=== PATIENT | female | born 1955 | race Caucasian/White ===

== ENCOUNTER → 2017-09-11 | Outpatient (CLI) | payer BC ==
[~2017-09-11] MED LIST: B COTAB3 PO; CALTTAB2 PO; CENTTAB9 PO; COMMODE 3-IN-11 MIS; COUM3TAB PO; ECASA81 PO; ENAL10TA PO; ENOX40IN SQ; FERR324T PO; LEVO.05 PO; LEVO25TA4 PO; LIPI20TA PO; METO25TA3 PO; MULT1TAB PO; NORC5TAB PO; OXYC-360 PO; PANT40TA3 PO; PLAV75TA29 PO; VASO10TA8 PO; VITA100021 SL; VITATAB11 PO; WALKER WHEELS/F1 MIS; ZOFR4TAB PO
== END ==
LOC: CPRE 08:26
PROVIDERS: ATTEND Orthopaedic Surgery
DX: M16.12 Unilateral primary osteoarthritis, left hip (principal)

== ENCOUNTER 2017-09-27 06:52 | Inpatient (IN) | payer BC ==
[~2017-09-27] VITALS: Ht 175.3 cm; Wt 62.4 kg
[~2017-09-27 06:52] MED LIST changes: -B COTAB3 PO; -CALTTAB2 PO; -CENTTAB9 PO; -COMMODE 3-IN-11 MIS; -COUM3TAB PO; -ENOX40IN SQ; -FERR324T PO; -LEVO.05 PO; -NORC5TAB PO; -OXYC-360 PO; -VASO10TA8 PO; -WALKER WHEELS/F1 MIS; -ZOFR4TAB PO
[2017-09-27] MEDS ORDERED: CHLORHEXIDINE GLUCONATE 2 % 1 PACK (2 CLOTHS) TOPICAL PRN (08:00)
[2017-09-27] MEDS ORDERED: POVIDONE IODINE 5% (ANTISEPSIS KIT) 4 APPLICATIONS EACH NARE PRN (08:00)
[2017-09-27] MEDS ORDERED: POVIDONE IODINE 7.5% SCRUB 118 ML BOTTLE TOPICAL SCH (08:00)
[2017-09-27] MEDS ORDERED: VANCOMYCIN 1000 MG/NS 250 ML (for <70 kg) IV SCH ×2 (08:00)
[2017-09-27] MEDS ORDERED: METOPROLOL TARTRATE 25 MG TAB PO PRN (08:00)
[2017-09-27] MEDS ORDERED: SODIUM CHLORID 0.9% 500 ML IV PRN (08:00)
[2017-09-27] MEDS ORDERED: LACTATED RINGER'S 1000 ML IV PRN (08:00)
[2017-09-27] MEDS ORDERED: CLINDAMYCIN 900 MG/NS 100 ML IV SCH ×2 (08:00)
[2017-09-27] MEDS ORDERED: CLINDAMYCIN 900 MG/NS PREMIX 50 ML IV ONE (08:30)
[2017-09-27] MEDS ORDERED: DEXAMETHASONE SOD PHOS 20 MG/5 ML VIAL IV ONE (08:30)
[2017-09-27] MEDS ORDERED: GENTAMICIN SULFATE 80 MG/2 ML VIAL ONE (08:55)
[2017-09-27] MEDS ORDERED: TRANEXAMIC ACID INJ 625 MG in SODIUM CHLORIDE 0.9% INJ 100 ML IV SCH ×2 (09:00→13:00)
[2017-09-27] MEDS ORDERED: EXPAREL PERI-ARTICULAR INJECTION (TOTAL VOL. 60 ML) P-ARTICULR SCH ×2 (09:00)
[2017-09-27] MEDS ORDERED: ACETAMINOPHEN 1000 MG/100 ML 100 ML IV ONE (09:04)
[2017-09-27] MEDS ORDERED: ZOLPIDEM TARTRATE 5 MG TAB PO PRN (12:15)
[2017-09-27] MEDS ORDERED: ACETAMINOPHEN/HYDROcodone 325 MG/5 MG TAB PO PRN (12:15)
[2017-09-27] MEDS ORDERED: ALUMINUM/MAGNESIUM/SIMETH 30 ML CUP PO PRN (12:15)
[2017-09-27] MEDS ORDERED: BISACODYL 10 MG SUPP RECTAL PRN (12:15)
[2017-09-27] MEDS ORDERED: NALOXONE HCL 0.4 MG/ML AMP IV PUSH PRN (12:15)
[2017-09-27] MEDS ORDERED: MORPHINE SULFATE 4 MG/ML INJ IV PUSH PRN (12:15)
[2017-09-27] MEDS ORDERED: diphenhydrAMINE HCL 50 MG/ML VIAL IV PUSH PRN (12:15)
[2017-09-27] MEDS ORDERED: MAGNESIUM HYDROXIDE SUSP 30 ML CUP PO PRN (12:15)
--- NOTE | 2017-09-27 12:21 | PD.OP ---
cc: Nigel Singh MD Operative Report Date of Surgery: Sep 27, 2017 Preoperative Diagnosis: Left hip severe osteoarthritis Postoperative Diagnosis: Same Procedure: Left total hip arthroplasty Anesthesia: Gen. Surgeon: Nigel Singh Head Tennis Professional(s): CAROL Barr The surgical procedure was assisted by my Advanced Registered Nurse Practitioner. My SURGEON/PRESIDENT presence was necessary throughout this case for the manipulation and positioning of the surgical extremity. My SURGEON/PRESIDENT was assisting me throughout the duration of this procedure. The skill set of an Advance Registered Nurse Practitioner was medically necessary to complete this procedure. During the surgical case, the hotel maintenance technician was working at the back table and the Advance Registered Nurse Practitioner was directly assisting me. Operation and Findings: IMPLANT DESCRIPTION: 1. Rogers Gription Cup, acetabular size 52, secured with 3 screws. 2. Rogers AltrX polyethylene, neutral. 4. Corail femoral stem size 12, no collar, high offset. 5. Femoral head/neck ceramic, 36, +1.5. ESTIMATED BLOOD LOSS: 300 cc. JUSTIFICATION FOR PROCEDURE: The patient has end-stage osteoarthritis to the hip. There is an attached conservative measures pathway form in the chart that describes the nonoperative measures that were undertaken prior to consideration of surgical management. The patient understood the risks and benefits of surgical management. See my office notes for further details. PROCEDURE: The patient was brought back to the operative theatre. Adequate anesthesia was obtained. The patient received intravenous clindamycin and vancomycin. The patient was carefully placed on the operative table. The lower extremity was prepped and draped in the usual sterile fashion. Fluoroscopic images were obtained. We made a standard anterior incision over the hip. We dissected through the TFL fascia, exposing the anterior capsule. Arthrotomy was performed in a T-shaped fashion. The capsule was tagged with a #2 FiberWire. End-stage arthritis was identified. Osteotomy was performed through the femoral neck exposing the acetabulum. Remnants of the labrum were resected and osteophytes were removed. We sequentially reamed the acetabulum. We trialed the hip and placed the final cup into position. This was done under fluoroscopic guidance to obtain the appropriate inclination and anteversion. The cup didn't quite have a strong a bite as I would've liked therefore we augmented fixation with 3 screws. 2 of these screws had excellent purchase with a very positive firm endpoint. One screw had very good purchase. A manhole cover was placed into the acetabular component. We then placed the final polyethylene into position and confirmed that it was well seated. Multiple fluoroscopic images later in the case showed that the cup stayed in anatomic position. Capsular attachments on the calcar and the inner aspect of the greater trochanter were resected. On the proximal aspect of the femur we used a rongeur , box osteotome, canal finder, sequential broaches and lateralizing rasp. We calcar planed the proximal femur. Then thoroughly irrigated the wound. We trialed the hip with the appropriate size stem. We placed the final stem in to position and trialed again. The hip was stable while it was externally rotated 70 degrees when the leg was lowered to the floor. The final head was applied, and final fluoroscopic images were obtained. The wound was thoroughly irrigated again. Interarticular injection of liposomal bupivacaine was given. The capsule was closed with #2 FiberWire and #1 Vicryl. The deep fascia was closed with a #2 Stratafix, followed by 2-0 Vicryl in the skin and Dermabond dressing. Postop plan is to weight-bear as tolerated. DVT prophylaxis will be performed with SCDs, DIVYA luu, early mobilization, and Lovenox followed by Plavix/aspirin. Nigel Singh MD Sep 27, 2017 12:21
[2017-09-27] MEDS ORDERED: ENOX40IN SQ (12:22)
[2017-09-27] MEDS ORDERED: NORC5TAB PO (12:22)
[2017-09-27] MEDS ORDERED: DO NOT ADM ANY ANTICOAGULANT DRUGS PRN (12:45)
[2017-09-27] MEDS ORDERED: Post-op Orders (for Pharmacy) XX ONE (13:00)
[2017-09-27] MEDS: SODIUM CHLOR 0.9% 1000 ML INJ 1,000 ML IV SCH ×2 (13:00→22:15)
[2017-09-27] MEDS ORDERED: *morphine SULFATE 8 MG/ML PERIprocedure ONLY ONE (13:11)
--- NOTE | 2017-09-27 13:37 | PD.CONS ---
HPI Service [facility] Consult Requested By Reason for Consult medical management Primary Care Physician Jessica Burgess M.D. Diagnoses: History of Present Illness patient is a 61 y/o female with history of osteoarthritis,CAD, hypertension who underwent left total hip arthroplasty today.at the time of my evaluation she was resting comfortably with no distress. pain was minimal to mild. she denies any nausea, chest pain, dizziness. Review of Systems Constitutional: DENIES: Fever, Weight loss, Chills, Night Sweats Eyes: DENIES: Blurred vision, Diplopia, Vision loss, Double Vision Ears, nose, mouth, throat: DENIES: Tinnitus, Vertigo, Throat pain, Epistaxis Respiratory: DENIES: Apneas, Cough, Snoring, Wheezing, Hemoptysis, Sputum production, Shortness of breath Cardiovascular: DENIES: Chest pain, Palpitations, Syncope, Dyspnea on Exertion , PND, Lower Extremity Edema, Orthopnea, Claudication Gastrointestinal: DENIES: Abdominal pain, Black stools, Bloody stools, Constipation, Diarrhea, Nausea, Vomiting, Difficulty Swallowing, Anorexia Genitourinary: DENIES: Urinary frequency, Urgency, Hematuria, Dysuria Musculoskeletal: DENIES: Joint pain, Muscle aches, Stiffness, Joint Swelling Integumentary: DENIES: Rash Neurologic: DENIES: Abnormal gait, Headache, Localized weakness, Paresthesias, Seizures, Speech Problems, Tremor, Poor Balance Psychiatric: DENIES: Anxiety, Confusion, Mood changes, Depression, Hallucinations, Agitation, Suicidal Ideation, Homicidal Ideation, Delusions Past Family Social History Allergies: Coded Allergies: cephalexin (Unverified Allergy, Severe, RASH, 09/11/17) Past Medical History osteoarthritis hypertension CAD hypothyroidism Past Surgical History cardiac stent placement.right hip replacement. Reported Medications aspirin plavix lipitor metoprolol enalapril levothyroxine Active Ordered Medications Inpatient Medications Acetaminophen/ Hydrocodone Bitart ([place] 5-325 Mg) 2 tab Q4H PRN PO PAIN SCALE 5 TO 10; Start 09/27/17 at 12:15; Status UNV Al Hydrox/Mg Hydrox/Simethicone (Mag-Al Plus Susp Liq) 30 ml Q6H PRN PO INDIGESTION; Start 09/27/17 at 12:15; Status UNV Atorvastatin Calcium (Lipitor) 20 mg HS PO ; Start 09/27/17 at 21:00 Bisacodyl (Dulcolax Supp) 10 mg DAILY PRN [place] CONSTIPATION; Start 09/27/17 at 12:15; Status UNV Bupivacaine Liposome 20 ml/ Sodium Chloride 60 ml @ 120 mls/hr ONCE P-ARTICULR Last administered on 09/27/17 12:06; Start 09/27/17 at 09:00; Stop at 15:00 Chlorhexidine Gluconate (Chlorhexidine 2% Cloth) [address] BUYER PRN TOPICAL SEE LABEL COMMENTS Last administered on 09/27/17 07:45; Start 09/27/17 at 08: 00; Stop 09/30/17 at 07:59 Clindamycin Phosphate 900 mg/ Sodium Chloride 106 ml @ 212 mls/hr Q8H IV ; Start 09/27/17 at 12:15; Stop 09/28/17 at 04:44; Status UNV Clindamycin/ Sodium Chloride 50 ml @ 100 mls/hr ONCE ONCE IV Last administered on 09/27/17 09:45; Start 09/27/17 at 08:30; Stop 09/27/17 at 08 :59; Status DC Dexamethasone Sodium Phosphate (Decadron Inj) 10 mg ONCE ONCE IV ; Start 09/28 at 07:45; Stop 09/28/17 at 07:46; Status UNV Diphenhydramine HCl (Benadryl Inj) 25 mg Q6H PRN IV PUSH ITCHING; Start at 12:15; Status UNV Docusate Sodium (Colace) 100 mg BID PO ; Start 09/28/17 at 21:00; Status UNV Enalapril Maleate (Vasotec) 10 mg DAILY PO ; Start 09/28/17 at 09:00; Status UNV Enoxaparin Sodium (Lovenox Inj) 40 mg Q24H SQ ; Start 09/27/17 at 12:15; Stop 10/06/17 at 12:16; Status UNV Lactated Ringer's 1,000 ml @ 30 mls/hr Q24H PRN IV SEE LABEL COMMENTS Last administered on 09/27/17 08:00; Start 09/27/17 at 08:00; Stop 09/30/17 at 07 :59 Levothyroxine Sodium (Synthroid) 25 mcg DAILY PO ; Start 09/28/17 at 09:00; Status UNV Magnesium Hydroxide (Milk Of Magnesia Liq) 30 ml DAILY PRN PO CONSTIPATION; Start 09/27/17 at 12:15; Status UNV Metoprolol Tartrate (Lopressor) 12.5 mg BID PO ; Start 09/27/17 at 21:00; Status UNV Miscellaneous Information (Post-op Orders (for Pharmacy)) STAT ONCE XX ; Start 09/27/17 at 12:15; Stop 09/27/17 at 12:16; Status UNV Morphine Sulfate (Morphine Inj) 2 mg Q3H PRN IV PUSH pain greater than 5; Start 09/27/17 at 12:15; Status UNV Multivitamins/ Minerals Therapeutic (Theragran M Tab) 1 tab BID PO ; Start at 21:00; Stop 11/27/17 at 20:59; Status UNV Naloxone HCl (Narcan Inj) 0.4 mg UNSCH PRN IV PUSH RESPIRATORY RATE LESS THAN 10; Start 09/27/17 at 12:15; Status UNV Ondansetron HCl (Zofran Inj) 4 mg Q6H PRN IVP NAUSEA OR VOMITING; Start at 12:15; Status UNV Pantoprazole Sodium (Protonix) 40 mg DAILY PO ; Start 09/28/17 at 09:00; Status UNV Povidone Iodine (Betadine 5% Antisepsis Kit) [address] BUYER PRN EACH NARE SEE LABEL COMMENTS Last administered on 09/27/17 08:15; Start 09/27/17 at 08: 00; Stop 09/30/17 at 07:59 Povidone Iodine (Betadine 7.5% Scrub) 1 applic ONCE TOPICAL Last administered on 09/27/17 07:30; Start 09/27/17 at 08:00; Stop 09/30/17 at 07:59 Sodium Chloride 1,000 ml @ 100 mls/hr Q10H IV ; Start 09/27/17 at 12:15 Tranexamic Acid 625 mg/Sodium Chloride 106.25 ml @ 200 mls/ hr UNSCH IV ; Start 09/27/17 at 13:00; Stop 09/27/17 at 13:32 Vancomycin HCl 1000 mg/Sodium Chloride 250 ml @ 250 mls/hr RIGHT OF WAY BUYER IV Last administered on 09/27/17t 09:45; Start 09/27/17 at 08:00; Stop 09/30/17 at 07 :59 Zolpidem Tartrate (Ambien) 5 mg HS PRN PO SLEEP; Start 09/27/17 at 12:15 Family History not relevant to this consult. Social History quit smoking years ago. Physical Exam Vital Signs Vital Signs Date Time Temp Pulse Resp B/P (MAP) Pulse Ox O2 Delivery O2 Flow Rate FiO2 09/27/17 12:45 98.0 110 16 130/78 (95) 97 Nasal Cannula 3 09/27/17 08:10 98.0 72 18 141/89 (106) 99 Physical Exam GENERAL: This is a well-nourished, well-developed patient, in no apparent distress. SKIN: No rashes, ecchymoses or lesions. Cool and dry. HEAD: Atraumatic. Normocephalic. No temporal or scalp tenderness. EYES: Pupils equal round and reactive. Extraocular motions intact. No scleral icterus. No injection or drainage. ENT: Nose without bleeding, purulent drainage or septal hematoma. Throat without erythema, tonsillar hypertrophy or exudate. Uvula midline. Airway patent. NECK: Trachea midline. No JVD or lymphadenopathy. Supple, nontender, no meningeal signs. CARDIOVASCULAR: Regular rate and rhythm without murmurs, gallops, or rubs. RESPIRATORY: Clear to auscultation. Breath sounds equal bilaterally. No wheezes , rales, or rhonchi. GASTROINTESTINAL: Abdomen soft, non-tender, nondistended. No hepato-splenomegaly , or palpable masses. No guarding. MUSCULOSKELETAL: Extremities without clubbing, cyanosis, or edema. No joint tenderness, effusion, or edema noted. No calf tenderness. Negative Homans sign bilaterally. NEUROLOGICAL: Awake and alert. Cranial nerves II through XII intact. Motor and sensory grossly within normal limits. Five out of 5 muscle strength in all muscle groups. Normal speech. Assessment and Plan Assessment and Plan A/P - osteoarthritis of the left hip- s/p left total hip arthroplasty continue pain control- PT consulted- management per ortho. -CAD- s/p stent placement; resume metoprolol, enalapril and statin- resume aspirin and plavix when ok with ortho. -hypertension; continue home meds; metoprolol and enalapril- will monitor and adjust the regimen as needed. -hypothyroidism; resume levothyroxine -DVT prophylaxis with subq Lovenox- per ortho. thank you for the consult. Discussed Condition With the patient. Amanda Ibanez MD Sep 27, 2017 13:36
--- NOTE | 2017-09-27 13:46 | RADRPT ---
EXAM DATE/TIME: 09/27/2017 10:36 [facility] COMPARISON: No previous studies available for comparison. INDICATIONS : Left total hip replacement. MEDICAL HISTORY : None. SURGICAL HISTORY : None. ENCOUNTER: Initial ACUITY: 1 day PAIN SCORE: Non-responsive. LOCATION: Left Hip FINDINGS: 3 fluoroscopic images of the left hip. Interval left hip arthroplasty. Arthroplasty components are in anatomic alignment. Hardware is well-positioned. There is no significant fracture. CONCLUSION: 1. Status post left hip arthroplasty in anatomic alignment without significant fracture. Ambrosio Funez MD on September 27, 2017 at 13:43 Board Certified Radiologist. This report was verified electronically.
--- NOTE | 2017-09-27 14:28 | RADRPT ---
EXAM DATE/TIME: 09/27/2017 13:11 [facility] COMPARISON: No previous studies available for comparison. INDICATIONS : Post-op left hip. MEDICAL HISTORY : None. SURGICAL HISTORY : None. ENCOUNTER: Initial ACUITY: 1 day PAIN SCORE: 0/10 LOCATION: Left Hip. FINDINGS: Right hip arthroplasty in anatomic alignment. Interval placement of left hip arthroplasty. Arthroplas ty components are in anatomic alignment and well-positioned. Postsurgical soft tissue changes are not ed in the left hip region. No acute bony fractures. CONCLUSION: 1. Status post left hip arthroplasty in anatomic alignment without acute fracture. Ambrosio Funez MD on September 27, 2017 at 14:21 Board Certified Radiologist. This report was verified electronically.
--- NOTE | 2017-09-27 14:54 | EKG ---
Date Performed: 09/27/2017 Time Performed: 08:24:41 PTAGE: 61 years EKG: Sinus rhythm NORMAL ECG PREVIOUS TRACING : 06/04/2010 09.39 DOCTOR: George Fraga Interpretating Date/Time 09/27/2017 14:54:07
--- NOTE | 2017-09-27 15:22 | HHI.DCPOC ---
Discharge Care Plan Diagnosis: (1) Osteoarthritis of left hip (2) Status post total hip replacement, left Your Health Problems Are: Difficulty with ADL Goals to Promote Your Health * To prevent worsening of your condition and complications * To maintain your health at the optimal level Directions to Meet Your Goals Take your medications as prescribed Follow your dietary instruction Follow activity as directed Keep your appointments as scheduled Take your immunizations and boosters as scheduled If your symptoms worsen call your PCP, if no PCP go to Urgent Care Center or Emergency Room Smoking is Dangerous to Your Health. Avoid second hand smoke Call the 24-hour hour crisis hotline for domestic abuse at Gilberto Benitez Sep 27, 2017 15:22
--- NOTE | 2017-09-27 15:23 | HHI.FF ---
Face to Face Verification Diagnosis: (1) Osteoarthritis of left hip (2) Status post total hip replacement, left Physical Therapy Gait training, Transfer training, bed to chair Hip: Total hip Left LE Weight Bearing: WB as tolerated Left LE Range of Motion: Active ROM Nursing Nursing: Angélica woods Dressing Changes: Do not change dressing Additional Instructions First dressing change in office I have seen patient Jaclyn Dotson on 09/27/17. My clinical findings support the need for the requested home health care services because: Limited ability to care for self High risk of falls I certify that my clinical findings support that this patient is homebound because: Post-op weakness Unsteady gait/balance Gilberto Benitez Sep 27, 2017 15:23
[2017-09-27] MEDS ORDERED: COMMODE 3-IN-11 MIS (15:25)
[2017-09-27] MEDS ORDERED: WALKER WHEELS/F1 MIS (15:25)
[2017-09-27] MEDS: CLINDAMYCIN 900 MG/NS PREMIX 50 ML IV SCH (17:00)
[2017-09-27] MEDS ORDERED: *ONDANSETRON 4 MG VIAL PERIprocedural Use ONLY ONE (18:24)
[2017-09-27 20:05] VITALS: BP 130/84; PULSE 90; RESP 17; TEMP 97.3; O2SAT 100
[2017-09-27] MEDS: ATORVASTATIN 20 MG TAB PO SCH (20:11)
[2017-09-27] MEDS: METOPROLOL TARTRATE 25 MG TAB PO SCH (20:12)
[2017-09-28] VITALS: BP 130/79; PULSE 100; RESP 20; TEMP 99.2; O2SAT 97
[2017-09-28] MEDS: CLINDAMYCIN 900 MG/NS PREMIX 50 ML IV SCH ×2 (00:55→09:12)
[2017-09-28] MEDS: ONDANSETRON HCL 4 MG/2 ML VIAL IVP PRN ×3 (01:31→12:42)
[2017-09-28 04:00] VITALS: BP 149/86; PULSE 93; RESP 20; TEMP 98.3; O2SAT 99
[2017-09-28] MEDS: LEVOTHYROXINE SODIUM 25 MCG TAB PO SCH (06:00)
[2017-09-28] MEDS ORDERED: DEXAMETHASONE SOD PHOS 20 MG/5 ML VIAL IV ONE (07:45)
[2017-09-28 08:00] VITALS: BP 146/85; PULSE 93; RESP 16; TEMP 99.5; O2SAT 99
[2017-09-28] MEDS: METOPROLOL TARTRATE 25 MG TAB PO SCH ×2 (08:58→21:08)
[2017-09-28] MEDS ORDERED: ENALAPRIL MALEATE 10 MG TAB PO SCH (09:00)
[2017-09-28] MEDS ORDERED: PANTOPRAZOLE SOD 40 MG DELAYED RELEASE TAB PO SCH (09:00)
[2017-09-28] MEDS: SODIUM CHLOR 0.9% 1000 ML INJ 1,000 ML IV SCH ×2 (09:13→18:15)
[2017-09-28 09:19] LABS: HEMATOCRIT 30.5 % (35.0-46.0); MEAN CELL VOLUME 95.4 FL (80.0-100.0); MEAN CORPUSCULAR HEMOGLOBIN 32.8 PG (27.0-34.0); MEAN CORPUSCULAR HGB CONC 34.4 % (32.0-36.0); PLATELET COUNT 206 TH/MM3 (150-450); RED CELL DISTRIBUTION WIDTH 12.8 % (11.6-17.2); REVIEW FLAG FINAL; WHITE BLOOD COUNT 7.5 TH/MM3 (4.0-11.0)
[2017-09-28 12:00] VITALS: BP 116/79; PULSE 87; RESP 16; TEMP 101; O2SAT 99
[2017-09-28] MEDS ORDERED: ENOXAPARIN SODIUM 40 MG/0.4 ML SYRINGE SQ SCH (12:00)
[2017-09-28] MEDS: ACETAMINOPHEN/HYDROcodone 325 MG/5 MG TAB PO PRN ×3 (12:41→21:04)
--- NOTE | 2017-09-28 13:06 | PD.ORT.PN ---
Subjective Post Op Day #: 1 Subjective Remarks Patient is OOB in chair with mild to moderate pain to the left hip. Patient states she is not taking pain medication because of how it makes her feel. Patient also concerned about nausea. Patient has been ambulatory. Objective Vitals Vital Signs Date Time Temp Pulse Resp B/P (MAP) Pulse Ox O2 Delivery O2 Flow Rate FiO2 09/28/17 08:00 99.5 93 16 146/85 (105) 99 09/28/17 04:00 98.3 93 20 149/86 (107) 99 09/28/17 00:00 99.2 100 20 130/79 (96) 97 09/27/17 20:05 97.3 90 17 130/84 (99) 100 09/27/17 18:45 96 16 96 Room Air 09/27/17 18:00 97.6 98 16 111/58 (75) 96 Room Air 09/27/17 17:00 97 16 110/64 (79) 96 Room Air 09/27/17 16:00 96 16 113/66 (82) 95 Room Air 09/27/17 15:00 99 16 109/63 (78) 95 Room Air 09/27/17 14:00 100 16 111/69 (83) 99 Nasal Cannula 2 09/27/17 13:45 101 16 114/72 (86) 98 Nasal Cannula 2 09/27/17 13:30 97.6 100 16 118/65 (82) 97 Nasal Cannula 2 09/27/17 13:15 102 16 119/67 (84) 100 Nasal Cannula 3 I/O 09/27/17 09/27/17 09/27/17 09/28/17 09/28/17 09/28/17 07:00 15:00 23:00 07:00 15:00 23:00 Intake Total 1106.25 ml 1280 ml 330 ml Output Total 150 ml 500 ml Balance 956.25 ml 1280 ml -170 ml Intake Oral 240 ml 280 ml IV Total 106.25 ml 1040 ml 50 ml Other 1000 ml Output Urine Total 500 ml Estimated Blood Loss 150 ml # Voids 1 # Bowel Movements 0 0 Result Diagram: 09/28/17 0823 Procedures Left SILVIA Objective Remarks The patient's dressing is C/D/I. EHL/TA/G intact. 2+ pedal pulse. + SILT. Calf is soft and nontender. Assessment & Plan Ortho Post Op Day #: 1 Problem List: Assessment and Plan POD #1: Left SILVIA 1. Lovenox followed by resuming Plavix and ASA for DVT prophylaxis 2. WBAT LLE 3. Ice to the left hip PRN 4. Stable for discharge home with home health today 5. F/U in the office with Dr. Singh or CAROL Delgado as previously scheduled. 6. Will provide Zofran script for home 7. Will order platform walker for patient secondary to a previously fractured left wrist. Gilberto Benitez Sep 28, 2017 13:06
[2017-09-28] MEDS ORDERED: WALKER WHEELS/F1 MIS (13:10)
[2017-09-28] MEDS ORDERED: ZOFR4TAB PO ×2 (13:11→15:29)
--- NOTE | 2017-09-28 15:30 | HHI.PR ---
Subjective Remarks states she is hopeful to go home today. felt a bit nauseous earlier today but tolerating a diet. would like some nausea med for home. currently no nausea, pain controlled. Objective Vitals Vital Signs Date Time Temp Pulse Resp B/P (MAP) Pulse Ox O2 Delivery O2 Flow Rate FiO2 09/28/17 08:00 99.5 93 16 146/85 (105) 99 09/28/17 04:00 98.3 93 20 149/86 (107) 99 09/28/17 00:00 99.2 100 20 130/79 (96) 97 09/27/17 20:05 97.3 90 17 130/84 (99) 100 09/27/17 18:45 96 16 96 Room Air 09/27/17 18:00 97.6 98 16 111/58 (75) 96 Room Air 09/27/17 17:00 97 16 110/64 (79) 96 Room Air 09/27/17 16:00 96 16 113/66 (82) 95 Room Air I/O 09/27/17 09/27/17 09/27/17 09/28/17 09/28/17 09/28/17 07:00 15:00 23:00 07:00 15:00 23:00 Intake Total 1106.25 ml 1280 ml 330 ml Output Total 150 ml 500 ml Balance 956.25 ml 1280 ml -170 ml Intake Oral 240 ml 280 ml IV Total 106.25 ml 1040 ml 50 ml Other 1000 ml Output Urine Total 500 ml Estimated Blood Loss 150 ml # Voids 1 # Bowel Movements 0 0 Result Diagram: 09/28/17 0823 Imaging Last Impressions Hip and Pelvis X-Ray 09/27/17 1215 Signed Impressions: Service Date/Time: Wednesday, September 27, 2017 13:11 - CONCLUSION: 1. Status post left hip arthroplasty in anatomic alignment without acute fracture. Ambrosio Funez MD Hip X-Ray 09/27/17 0000 Signed Impressions: Service Date/Time: Wednesday, September 27, 2017 10:36 - CONCLUSION: 1. Status post left hip arthroplasty in anatomic alignment without significant fracture. Ambrosio Funez MD Objective Remarks GENERAL: sitting up in chair EYES: Extraocular motions intact. ENT: Nose without drainage. Airway patent. NECK: Trachea midline CARDIOVASCULAR: Regular rate and rhythm without murmurs RESPIRATORY: Clear to auscultation. Breath sounds equal bilaterally. No wheezes GASTROINTESTINAL: Abdomen soft, non-tender, nondistended. No guarding. MUSCULOSKELETAL: able to wiggle her toes, sensation intact. NEUROLOGICAL: Awake and alert. Normal speech. A/P Assessment and Plan - osteoarthritis of the left hip- s/p left total hip arthroplasty POD 1 pain control, rehab and anticoag per ortho. Post op fever noted. Pt is asymptomatic and pt has been encouraged to use her IS q1hr while awake. no further work-up at this time -CAD- s/p stent placement: on metoprolol, enalapril and statin- resume aspirin and plavix when ok with ortho. -hypertension; continue home meds; metoprolol and enalapril- will monitor and adjust the regimen as needed. -hypothyroidism; resume levothyroxine -DVT prophylaxis with subq Lovenox- per ortho. script for mattie left in chart per pt's request in case she does go home today Discharge Planning per primary team Jessica Whitt MD Sep 28, 2017 15:30
[2017-09-28 16:00] VITALS: BP 134/78; PULSE 93; RESP 16; TEMP 99; O2SAT 98
[2017-09-28] MEDS ORDERED: DOCUSATE SODIUM 100 MG CAP PO SCH (21:00)
[2017-09-28] MEDS ORDERED: MULTIVITAMINS/MINERALS THERAPEUTIC TAB PO SCH (21:00)
[2017-09-28] MEDS: ATORVASTATIN 20 MG TAB PO SCH (21:05)
[2017-09-28 21:39] VITALS: BP 125/74; PULSE 93; RESP 18; TEMP 98.4; O2SAT 97
[2017-09-29] VITALS: BP 118/66; PULSE 94; RESP 18; TEMP 99.2; O2SAT 94
[2017-09-29] MEDS: ACETAMINOPHEN/HYDROcodone 325 MG/5 MG TAB PO PRN ×2 (03:47→09:14)
[2017-09-29 04:00] VITALS: BP 134/72; PULSE 92; RESP 18; TEMP 99.5; O2SAT 98
[2017-09-29] MEDS: SODIUM CHLOR 0.9% 1000 ML INJ 1,000 ML IV SCH (04:15)
[2017-09-29] MEDS: LEVOTHYROXINE SODIUM 25 MCG TAB PO SCH (06:00)
[2017-09-29 07:16] LABS: HEMATOCRIT 28.8 % (35.0-46.0); MEAN CELL VOLUME 95.5 FL (80.0-100.0); MEAN CORPUSCULAR HEMOGLOBIN 32.9 PG (27.0-34.0); MEAN CORPUSCULAR HGB CONC 34.4 % (32.0-36.0); PLATELET COUNT 178 TH/MM3 (150-450); RED BLOOD COUNT 3.01 MIL/MM3 (4.00-5.30); RED CELL DISTRIBUTION WIDTH 12.7 % (11.6-17.2); REVIEW FLAG FINAL
[2017-09-29 08:00] VITALS: BP 116/73; PULSE 85; RESP 16; TEMP 96.4; O2SAT 100
--- NOTE | 2017-09-29 12:30 | HHI.DS ---
Discharge Summary Admission Date Sep 27, 2017 at 06:52 Discharge Date: Sep 29, 2017 Admitting Diagnosis Left hip OA Status post total hip replacement, left Diagnosis: (1) Osteoarthritis of left hip Diagnosis: Principal ICD Codes: M16.12 - Unilateral primary osteoarthritis, left hip (2) Status post total hip replacement, left Diagnosis: Principal ICD Codes: Z96.642 - Presence of left artificial hip joint Procedures Left SILVIA Brief History This is a 62 year old female patient with severe OA of the left hip. CBC/BMP: 09/29/17 0620 Significant Findings Laboratory Tests Test 09/28/17 08:23 09/29/17 06:20 Red Blood Count 3.20 MIL/MM3 (4.00-5.30) 3.01 MIL/MM3 (4.00-5.30) Hemoglobin 10.5 GM/DL (11.6-15.3) 9.9 GM/DL (11.6-15.3) Hematocrit 30.5 % (35.0-46.0) 28.8 % (35.0-46.0) PE at Discharge The patient's dressing is C/D/I. EHL/TA/G intact. 2+ pedal pulse. + SILT. Calf is soft and nontender. Hospital Course The patient was admitted to the hospital for severe OA of the left hip to have a left SILVIA. The patient's surgery went well without complication. The patient is WBAT. The patient is on a regular diet. The patient is on Lovenox followed by ASA and Plavix for DVT prophylaxis. The patient was discharged home with home health and will f/u in the office with Dr. Singh or CAROL Delgado as previously scheduled. Pt Condition on Discharge: Stable Discharge Disposition: Disch w/ Home Health Serv Discharge Instructions Diet Instructions: As Tolerated, No Restrictions Activities You Can Perform: Weight Bearing as Natividad Activities to Avoid: Strenuous Activity Follow up Referrals: Orthopedics with Nigel Singh MD New Medications: Commode 3-in-1 (Commode 3-in-1) 1 Mis Mis EA .ROUTE DIRECTED, #1 0 Refills Enoxaparin Inj (Enoxaparin Inj) 40 Mg/0.4 Ml Syr 40 MG SQ DAILY for Blood Clot Prevention, #10 SYRINGE 0 Refills After the Lovenox is completed then resume Plavix/aspirin Hydrocodone-Acetaminophen ([place]) 5 Mg-325 Mg Tab 1-2 TAB PO Q4H PRN for PAIN, #60 TAB 0 Refills Ondansetron (Zofran) 4 Mg Tab 4 MG PO Q6HR PRN for NAUSEA OR VOMITING, #30 TAB 0 Refills Ondansetron (Zofran) 4 Mg Tab 4 MG PO Q6HR PRN for NAUSEA OR VOMITING, #10 TAB 0 Refills Walker with Front Wheels (Walker with Front Wheels) 1 Mis Mis EA .ROUTE DIRECTED, #1 0 Refills Continued Medications: Atorvastatin (Lipitor) 20 Mg Tab 20 MG PO HS for Cholesterol Management, #30 TAB 0 Refills B-Complex Vitamins (Vitamin B Complex) 1 Tab 1 TAB PO DAILY Cyanocobalamin (Vitamin B-12) 1,000 Mcg Subl 1000 MCG SL DAILY for Nutritional Supplement, TAB.SL 0 Refills Enalapril (Enalapril) 10 Mg Tab 10 MG PO DAILY, #30 TAB 0 Refills Levothyroxine (Levothyroxine) 25 Mcg Tab 25 MCG PO DAILY for Thyroid, #30 TAB 0 Refills Metoprolol Tartrate (Metoprolol Tartrate) 25 Mg Tab 12.5 MG PO BID, #60 TAB 0 Refills Multiple Vitamins W/ Minerals (Centrum Silver Adult 50+) 0.4 Mg-300 Mcg-250 Mcg Tab 1 TAB PO DAILY Pantoprazole (Pantoprazole) 40 Mg Tab 40 MG PO DAILY for Reflux, #30 TAB 0 Refills Discontinued Medications: Aspirin DR (Aspirin DR) 81 Mg Tabdr 81 MG PO DAILY, TAB 0 Refills Clopidogrel (Plavix) 75 Mg Tab 75 MG PO DAILY for Blood Clot Prevention, #30 TAB 0 Refills Gilberto Benitez Sep 29, 2017 12:30
== END 2017-09-29 09:56 | disposition home health service (06) | DRG 470 ==
LOC: HSDI 06:52 → N06B 19:07
PROVIDERS: ADMIT Orthopaedic Surgery; ATTEND Orthopaedic Surgery
PROC: 0SRB04A Replacement of Left Hip Joint with Ceramic on Polyethylene Synthetic Substitute, Uncemented, Open Approach (ICD-10-PCS; principal; 2017-09-27 09:49)
DX: M16.12 Unilateral primary osteoarthritis, left hip (principal); M87.852 Other osteonecrosis, left femur; I10 Essential (primary) hypertension; Z96.641 Presence of right artificial hip joint; M25.752 Osteophyte, left hip; I25.10 Atherosclerotic heart disease of native coronary artery without angina pectoris; E03.9 Hypothyroidism, unspecified; R11.0 Nausea; R50.82 Postprocedural fever; E78.5 Hyperlipidemia, unspecified; K21.9 Gastro-esophageal reflux disease without esophagitis; F10.10 Alcohol abuse, uncomplicated; Z88.1 Allergy status to other antibiotic agents; Z95.5 Presence of coronary angioplasty implant and graft; Z87.891 Personal history of nicotine dependence
CPT/HCPCS: 73502; 76000; 85027; 86850; 86900; 86901; 93005; 94150; C1776; C9290; J0131; J1100; J1580; J1650; J2270; J2405; J3370; J7030; J7050; J7120